=== PATIENT | female | born 1985 | race Caucasian/White ===

== ENCOUNTER 2018-02-21 12:19 | Inpatient (IN) ==
[2018-02-21] MEDS ORDERED: Vancomycin Inj 1 GM/200 ML PIGGYBACK IV.SIG ONE (14:25)
[2018-02-21] MEDS ORDERED: Morphine Inj 4 MG/ML Vial IV.PUSH ONE (14:25)
--- NOTE | 2018-02-21 14:29 | ED ---
HPI General Chief complaint: Skin/Abscess/Foreign Body Stated complaint: Right hand swelling Time Seen by Provider: 02/21/18 14:16 History of Present Illness HPI narrative: 32-year-old female presents to the emergency department for evaluation of right hand abscess for 1 week. Patient states she was seen in our emergency department 2 days ago and had I&D of this abscess done at that time and has been on antibiotics since then however it continues to worsen. States that the area has gotten larger and more painful since then. States that she has decreased range of motion in the second and third MCP joints due to the swelling and pain and also reports she has a tingling sensation to the distal aspects of these fingers. She does complain of chills and body aches and pain. Denies any fever, nausea, vomiting, discharge or drainage. States that she has not used any drugs since she was seen here 2 days ago. States that the injection site was IV heroin. Denies . No other complaints or concerns. Related Data Previous Rx's Medication Instructions Recorded cephalexin [Keflex] 500 mg PO Q6H 7 Days #28 cap 02/19/18 sulfamethoxazole-trimethoprim 1 tab PO BID 7 Days #14 tab 02/19/18 [Bactrim DS] Allergies Allergy/AdvReac Type Severity Reaction Status Date / Time No Known Allergies Allergy Verified 02/21/18 13:41 Review of Systems ROS: all other systems reviewed are negative PMFSH Family History Family History Other No pertinent family history Social History Social History Substance History: Active Abuse Second Hand Smoke Exposure: Yes Smoking Status: Current every day smoker Tobacco Type: Cigarettes How Often Do You Have a Drink Containing Alcohol: Never Recent Travel in [facility] within the Last 8 Weeks: No Recent Out of Country Travel within the Last 8 Weeks: No Substance Abuse Detail Methamphetamine: Substance Use Status: Active Route Used Substance Abuse: Intravenously Substance Frequency: WEEKLY Last Used: 02/18/18 Immunization History Tetanus Immunization: Unsure Hx Influenza Vaccine This Season: No Exam Narrative Exam Narrative: GENERAL: Well-nourished and well-developed female patient in no acute distress who is nontoxic appearing. SKIN: Warm and dry. HEAD: Normocephalic and atraumatic. EYES: No injection, drainage, or hyphema noted. PERRLA. EOMI. ENT: No nasal drainage noted. Oropharynx is clear. NECK: Supple and the trachea is midline. CARDIOVASCULAR: Regular rate and rhythm. RESPIRATORY: Breath sounds are equal bilaterally with no accessory muscle use, wheezing, rhonchi, or crackles. GASTROINTESTINAL: Abdomen is soft, non-tender, and nondistended. MUSCULOSKELETAL: Dorsal aspect of right hand overlying second and third MCPs with erythema, swelling, induration and tenderness to palpation. Decreased range of motion in the second and third MCP joints, full range of motion in all other joints. No obvious deformities, cyanosis, or ecchymosis is present throughout the upper and lower extremities. Patient has full range of motion without any signs of neurovascular compromise. Distal pulses are 2+ throughout. NEUROLOGICAL: Awake, alert, and oriented. Normal speech and gait. Cranial nerves are grossly intact. Course Initial Documented Vital Signs Temperature 98.3 F 02/21/18 12:36 Pulse Rate 62 02/21/18 12:36 Respiratory Rate 16 02/21/18 12:36 Blood Pressure 117/54 L 02/21/18 12:36 Pulse Oximetry 99 02/21/18 12:36 Last Documented Vital Signs Temperature 98.3 F 02/21/18 12:36 Pulse Rate 62 02/21/18 12:36 Respiratory Rate 16 02/21/18 12:36 Blood Pressure 117/54 L 02/21/18 12:36 Pulse Oximetry 99 02/21/18 12:36 Medical Decision Making [facility] Narrative Medical decision making narrative: 32-year-old female with a history of IVDU presents to the emergency department for evaluation of right hand abscess. Patient is afebrile, vital signs are stable. Patient seen in our emergency department 2 days ago and had I&D and has been on antibiotics however the infection has worsened. IV access is obtained, labs of been drawn and sent. Patient placed on cardiac telemetry and pulse oximetry monitoring. I reviewed the previous documentation which shows the patient was given clindamycin while in the ED and then discharged on Keflex and Bactrim. Therefore will give her broad-spectrum coverage with 1 g vancomycin. Patient will be need to be admitted for failure of outpatient antibiotic therapy and to have hand surgery consult. CBC shows no acute abnormality. ESR is 28. CMP shows no acute abnormality. Lactic acid is 0.9. CRP is 1.78. Hospitalist accepted admission. Medical Screen Exam Complete: Yes Emergency Medical Condition: Yes Differential Diagnosis Differential Diagnosis: Abscess versus cellulitis versus sepsis Lab Data Result diagrams: 02/21/18 15:17 02/21/18 15:17 POC Results POC Urine Results Negative Lab Results 02/21/18 02/21/18 02/21/18 Range/Units 15:17 15:17 15:17 WBC 6.6 (4.0-11.0) th/mm3 RBC 4.53 (4.00-5.30) mil/mm3 Hgb 13.6 (11.6-15.3) gm/dL Hct 40.9 (35.0-46.0) % MCV 90.3 (80.0-100.0) fL MCH 30.1 (27.0-34.0) pg MCHC 33.3 (32.0-36.0) % RDW 14.1 (11.6-17.2) % Plt Count 330 (150-450) th/mm3 MPV 7.5 (7.0-11.0) fL Neut % (Auto) 50.7 (16.0-70.0) % Lymph % (Auto) 41.0 (9.0-44.0) % [place] % (Auto) 6.2 (0.0-8.0) % Eos % (Auto) 1.2 (0.0-4.0) % Baso % (Auto) 0.9 (0.0-2.0) % Neut # (Auto) 3.4 (1.8-7.7) th/mm3 Lymph # (Auto) 2.7 (1.0-4.8) th/mm3 [place] # (Auto) 0.4 (0.0-0.9) th/mm3 Eos # (Auto) 0.1 (0.0-0.4) th/mm3 Baso # (Auto) 0.1 (0.0-0.2) th/mm3 WBC Differential . Differential Comment Auto diff final ESR (0-20) mm/hr Sodium 142 (136-145) meq/L Potassium 4.0 (3.5-5.1) meq/L Chloride 106 (98-107) meq/L Carbon Dioxide 26.5 (21.0-32.0) meq/L Anion Gap 10 (5-15) meq/L BUN 9 (7-18) mg/dL Creatinine 0.83 (0.50-1.00) mg/dL Estimated GFR 81 L (>89) mL/min Random Glucose 98 (74-106) mg/dL Lactic Acid 0.9 (0.4-2.0) mmol/L Calcium 8.7 (8.5-10.1) mg/dL Total Bilirubin 0.2 (0.2-1.0) mg/dL AST 16 (15-37) U/L ALT 20 (10-53) U/L Alkaline Phosphatase 92 (45-117) U/L C-Reactive Protein (0.00-0.30) mg/dL Total Protein 8.0 (6.4-8.2) g/dL Albumin 3.5 (3.4-5.0) g/dL 02/21/18 02/21/18 Range/Units 15:17 15:17 WBC (4.0-11.0) th/mm3 RBC (4.00-5.30) mil/mm3 Hgb (11.6-15.3) gm/dL Hct (35.0-46.0) % MCV (80.0-100.0) fL MCH (27.0-34.0) pg MCHC (32.0-36.0) % RDW (11.6-17.2) % Plt Count (150-450) th/mm3 MPV (7.0-11.0) fL Neut % (Auto) (16.0-70.0) % Lymph % (Auto) (9.0-44.0) % [place] % (Auto) (0.0-8.0) % Eos % (Auto) (0.0-4.0) % Baso % (Auto) (0.0-2.0) % Neut # (Auto) (1.8-7.7) th/mm3 Lymph # (Auto) (1.0-4.8) th/mm3 [place] # (Auto) (0.0-0.9) th/mm3 Eos # (Auto) (0.0-0.4) th/mm3 Baso # (Auto) (0.0-0.2) th/mm3 WBC Differential Differential Comment ESR 28 H (0-20) mm/hr Sodium (136-145) meq/L Potassium (3.5-5.1) meq/L Chloride (98-107) meq/L Carbon Dioxide (21.0-32.0) meq/L Anion Gap (5-15) meq/L BUN (7-18) mg/dL Creatinine (0.50-1.00) mg/dL Estimated GFR (>89) mL/min Random Glucose (74-106) mg/dL Lactic Acid (0.4-2.0) mmol/L Calcium (8.5-10.1) mg/dL Total Bilirubin (0.2-1.0) mg/dL AST (15-37) U/L ALT (10-53) U/L Alkaline Phosphatase (45-117) U/L C-Reactive Protein 1.78 H (0.00-0.30) mg/dL Total Protein (6.4-8.2) g/dL Albumin (3.4-5.0) g/dL Discharge Plan Discharge Disposition Patient Disposition: 32 Still Patient Discharge Details Diagnosis: Cellulitis of hand, left Physicians Team ED Provider: Adriana Guy ED Midlevel Provider: Ana Maria Tovar Primary Care Provider: Primary Care Yael Arreguin Attending Provider: Cassie Ramirez Other Providers: Arcenio Bowens Status ED Status: Admitted Observation Patient
[2018-02-21] MEDS ORDERED: Vancomycin Inj 1,000 MG in Sodium Chlor 0.9% Inj 250 ML IV.SIG ONE (14:45)
[2018-02-21 15:44] LABS: Baso # (Auto) 0.1 th/mm3 (0.0-0.2); Baso % (Auto) 0.9 % (0.0-2.0); Eos # (Auto) 0.1 th/mm3 (0.0-0.4); Eos % (Auto) 1.2 % (0.0-4.0); Hematocrit 40.9 % (35.0-46.0); Hemoglobin 13.6 gm/dL (11.6-15.3); Lymph # (Auto) 2.7 th/mm3 (1.0-4.8); Mean Corpuscular HGB Conc 33.3 % (32.0-36.0); Mean Corpuscular Hemoglobin 30.1 pg (27.0-34.0); Mean Corpuscular Volume 90.3 fL (80.0-100.0); Mean Platelet Volume 7.5 fL (7.0-11.0); Mono # (Auto) 0.4 th/mm3 (0.0-0.9); Mono % (Auto) 6.2 % (0.0-8.0); Neut # (Auto) 3.4 th/mm3 (1.8-7.7); Neut % (Auto) 50.7 % (16.0-70.0); Platelet Count 330 th/mm3 (150-450); Red Blood Count 4.53 mil/mm3 (4.00-5.30); Red Cell Distribution Width 14.1 % (11.6-17.2); White Blood Count 6.6 th/mm3 (4.0-11.0)
[2018-02-21 16:26] LABS: Alanine Aminotransferase 20 U/L (10-53); Albumin 3.5 g/dL (3.4-5.0); Anion Gap 10 meq/L (5-15); Aspartate Aminotransferase 16 U/L (15-37); Blood Urea Nitrogen 9 mg/dL (7-18); Calcium 8.7 mg/dL (8.5-10.1); Carbon Dioxide 26.5 meq/L (21.0-32.0); Chloride 106 meq/L (98-107); Glomerular Filtration Rate 81 mL/min (>89); Glucose,Random 98 mg/dL (74-106); Sodium 142 meq/L (136-145)
[2018-02-21 16:28] LABS: Alkaline Phosphatase 92 U/L (45-117)
[2018-02-21] MEDS ORDERED: Vancomycin Consult Pharmacy OTHER PRN (17:04)
--- NOTE | 2018-02-21 17:12 | P.HPIM ---
History of Present Illness Primary Care Physician: No Primary Care Physician Chief Complaint: right hand infection History of Present Illness: patient is a 32 y/o female , IV-drug abuser, with history of hepatitis C, who presented to ER with right hand infection. she says that she tried to do the injection to her right hand about six days ago. two days after she started to have pain, swelling and redness over the right hand.she came to ER, received a dose of Clindamycin, had bedside drainage of the abscess and was discharged home with Bactrim and Keflex. she says that she could only fill the Bactrim prescription. however the infection of the right hand got worse. she says that now she's not able to bend the right fingers.she denies any fever or chills. Review of Systems All other systems reviewed negative except as stated in HPI PMFSH - History History Provided By: Patient - Medical History Medical History: Medical History (Last Reviewed 02/21/18 @ 17:08 by Cassie Ramirez MD) Hepatitis C - Surgical History Surgical History: Surgical History (Last Reviewed 02/21/18 @ 17:08 by Cassie Ramirez MD) No history of previous surgery - Family History Family History: Family History (Last Updated 02/21/18 @ 17:09 by Cassie Ramirez MD) Other No pertinent family history - Tobacco History Second Hand Smoke Exposure: Yes Tobacco Use In Past 30 Days: Yes Smoking Status: Current every day smoker Tobacco Type: Cigarettes - Alcohol History How Often Do You Have a Drink Containing Alcohol: Never - Substance Use History Substance History: Active Abuse - Substance Use Type Methamphetamine Status: Active Route Used: Intravenously Frequency: WEEKLY Last Used: 02/18/18 - Travel History Recent Travel in the [facility] Within the Last 8 Weeks: No Recent Travel Out of the Country Within the Last 8 Weeks: No - Immunization History Tetanus Immunization: Unsure Hx Influenza Vaccine This Season: No Medications and Allergies Active Medications: Active Medications Acetaminophen (Tylenol) 650 mg PO Q4H PRN PRN Reason: fever/pain 1-10 Piperacillin/Tazobactam/Dextrose (Zosyn 3.375 Gm Premix) 50 mls @ 100 mls/hr IV.SIG Q8H RANDI Ketorolac Tromethamine (Toradol Inj) 15 mg IV.PUSH Q6H PRN PRN Reason: breakthrough pain Pharmacy Profile Note (Vancomycin Consult Pharmacy) 1 each OTHER UNSCH PRN PRN Reason: Pharmacy to dose Allergies Allergy/AdvReac Type Severity Reaction Status Date / Time No Known Allergies Allergy Verified 02/21/18 13:41 Exam Vital signs: Vital Signs 02/21/18 12:36 Temperature 98.3 F Pulse Rate 62 Respiratory Rate 16 Blood Pressure 117/54 L Pulse Oximetry 99 Intake & Output 02/20/18 02/21/18 02/21/18 18:59 06:59 18:59 Intake Total 250 / 250 Balance 250 / 250 Weight 57.153 kg Intake: IV 250 / 250 Vancomycin Inj 1,000 MG In NS 250 / 250 Inj 250 ML @ 250 mls/hr IV.SIG ONCE ONE Rx#:[id number] - Constitutional no acute distress - Routine HEENT Exam Eye: Present: PERRL - Routine Neck Exam Present: supple - Routine Respiratory Exam Present: CTA bilaterally - Routine Cardiovascular Exam Present: RRR - Routine Abdominal Exam Present: soft - Routine Extremities Exam Comments: swelling of the right hand with decrease in ROM. - Routine Skin Exam Present: erythema (over the right hand.) - Routine Neurological Exam Present: alert, oriented X3 Results - Labs CBC & Chem 7: 02/21/18 15:17 02/21/18 15:17 Labs: Short CBC 02/21/18 Range/Units 15:17 WBC 6.6 (4.0-11.0) th/mm3 Hgb 13.6 (11.6-15.3) gm/dL Hct 40.9 (35.0-46.0) % Plt Count 330 (150-450) th/mm3 BMP 02/21/18 15:17 Sodium 142 Potassium 4.0 Chloride 106 Carbon Dioxide 26.5 BUN 9 Creatinine 0.83 Calcium 8.7 Liver Function 02/21/18 Range/Units 15:17 Total Bilirubin 0.2 (0.2-1.0) mg/dL AST 16 (15-37) U/L ALT 20 (10-53) U/L Alkaline Phosphatase 92 (45-117) U/L Albumin 3.5 (3.4-5.0) g/dL Caprini VTE Risk Assessment Caprini VTE Risk Assessment: No/Low Risk (score <= 1) Caprini Risk Assessment Model: Point Value = 1 Point Value = 2 Point Value = 3 Point Value = 5 Age 41-60 Minor surgery BMI > 25 kg/m2 Swollen legs Varicose veins or History of unexplained or recurrent spontaneous Oral contraceptives or hormone replacement Sepsis (< 1 month) Serious lung disease, including pneumonia (< 1 month) Abnormal pulmonary function Acute myocardial infarction Congestive heart failure (< 1 month) History of inflammatory bowel disease Medical patient at bed rest Age 61-74 Arthroscopic surgery Major open surgery (> 45 min) Laparoscopic surgery (> 45 min) Malignancy Confined to bed (> 72 hours) Immobilizing plaster cast Central venous access Age >= 75 History of VTE Family history of VTE Factor V Leiden Prothrombin [id number] Lupus anticoagulant Anticardiolipin antibodies Elevated serum homocysteine Heparin-induced thrombocytopenia Other congenital or acquired thrombophilia Stroke (< 1 month) Elective arthroplasty Hip, pelvis, or leg fracture Acute spinal cord injury (< 1 month) Prophylaxis Regimen: Total Risk Factor Score Risk Level Prophylaxis Regimen 0-1 Low Early ambulation 2 Moderate Order ONE of the following: *Sequential Compression Device (SCD) *Heparin 5000 units SQ BID 3-4 Higher Order ONE of the following medications: *Heparin 5000 units SQ TID *Enoxaparin/Lovenox 40 mg SQ daily (WT < 150 kg, CrCl > 30 mL/min) *Enoxaparin/Lovenox 30 mg SQ daily (WT < 150 kg, CrCl > 10-29 mL/min) *Enoxaparin/Lovenox 30 mg SQ BID (WT < 150 kg, CrCl > 30 mL/min) AND/OR *Sequential Compression Device (SCD) 5 or more Highest Order ONE of the following medications: *Heparin 5000 units SQ TID (Preferred with Epidurals) *Enoxaparin/Lovenox 40 mg SQ daily (WT < 150 kg, CrCl > 30 mL/min) *Enoxaparin/Lovenox 30 mg SQ daily (WT < 150 kg, CrCl > 10-29 mL/min) *Enoxaparin/Lovenox 30 mg SQ BID (WT < 150 kg, CrCl > 30 mL/min) AND *Sequential Compression Device (SCD) Assessment and Plan - Plan A/P - abscess of the right hand with history of IV drug-injection- with no improvement with oral antibiotic patient had bedside I/D two days ago. will start on broad-spectrum IV antibiotics and will consult hand surgery. will follow the blood cultures. will keep the right hand elevated and continue with pain control. -hepatitis C- f/u as outpatient. Discussed Condition With: ER and the patient. Discharge Planning: home- pending clinical course.
[2018-02-21] MEDS: Piperacil/Tazo 3.375 GM Premix 50 ML IV.SIG SCH (17:55)
[2018-02-21] MEDS: Acetaminophen 325 MG Tablet PO PRN (21:23)
[2018-02-22] MEDS: Piperacil/Tazo 3.375 GM Premix 50 ML IV.SIG SCH ×2 (01:53→10:36)
[2018-02-22] MEDS: Vancomycin Inj 850 MG in Sodium Chlor 0.9% Inj 250 ML IV.SIG SCH ×2 (04:13→16:43)
[2018-02-22] MEDS: Ketorolac Inj 30 MG/ML (IVP) Vial IV.PUSH PRN ×2 (11:19→18:10)
--- NOTE | 2018-02-22 12:23 | P.CONID ---
History of Present Illness Service: ID Consult date: 02/22/18 Requesting Physician: Rosa Riley Reason for Consult: Right hand cellulitis/abscess, IVDU Primary Care Provider: No Primary Care Physician Chief Complaint: right hand infection History of Present Illness: 32 yo F with active IVDU developped R hand swelling, pain redness few days ago after infecting IV drugs to the top of her hand Denies fevers, chills, no other symptoms No abx prior to admission Started on vanco and zosyn Improved since admitted Blood clx neg @ 1 day remains afebrile WBC is normal Review of Systems All other systems reviewed negative except as stated in HPI PMFSH - History History Provided By: Family Member - Medical History Medical History: Medical History (Last Reviewed 02/22/18 @ 12:17 by Diana Sparrow MD) Hepatitis C - Surgical History Surgical History: Surgical History (Last Reviewed 02/22/18 @ 12:17 by Diana Sparrow MD) No history of previous surgery - Family History Family History: Family History (Last Reviewed 02/22/18 @ 12:17 by Diana Sparrow MD) Other No pertinent family history - Social History I have reviewed the patient's Social History: Yes - Tobacco History Second Hand Smoke Exposure: Yes Tobacco Use In Past 30 Days: Yes Smoking Status: Current every day smoker Tobacco Type: Cigarettes - Alcohol History How Often Do You Have a Drink Containing Alcohol: Monthly or less - Substance Use History Substance History: Active Abuse - Substance Use Type Methamphetamine Status: Active Route Used: Intravenously Frequency: WEEKLY Last Used: 02/18/18 Reason for Use: Stay Awake - Travel History Recent Travel in the [place] Within the Last 8 Weeks: No Recent Travel Out of the Country Within the Last 8 Weeks: No - Immunization History Tetanus Immunization: Unsure Hx Influenza Vaccine This Season: No Medications and Allergies Active Medications: Active Medications Acetaminophen (Tylenol) 650 mg PO Q4H PRN PRN Reason: fever/pain 1-10 Last Admin: 02/21/18 21:23 Dose: 650 mg Piperacillin/Tazobactam/Dextrose (Zosyn 3.375 Gm Premix) 50 mls @ 100 mls/hr IV.SIG Q8H RANDI Last Admin: 02/22/18 10:36 Dose: 100 mls/hr Vancomycin HCl 850 mg/ Sodium (Chloride) 258.5 mls @ 250 mls/hr IV.SIG Q12H RANDI Last Infusion: 02/22/18 05:16 Dose: Infused Ketorolac Tromethamine (Toradol Inj) 15 mg IV.PUSH Q6H PRN PRN Reason: breakthrough pain Stop: 02/26/18 17:02 Last Admin: 02/22/18 11:19 Dose: 15 mg Miscellaneous Information ([facility] Ordered Lab Info) 1 each OTHER ONCE ONE Stop: 02/23/18 04:46 Pharmacy Profile Note (Vancomycin Consult Pharmacy) 1 each OTHER UNSCH PRN PRN Reason: Pharmacy to dose Allergies Allergy/AdvReac Type Severity Reaction Status Date / Time No Known Allergies Allergy Verified 02/21/18 13:41 Exam Vital signs: Vital Signs 02/21/18 12:36 02/21/18 17:57 02/21/18 18:18 Temperature 98.3 F 98.2 F Pulse Rate 62 60 Respiratory Rate 16 18 20 Blood Pressure 117/54 L 112/76 105/59 L Pulse Oximetry 99 96 02/21/18 20:00 02/21/18 23:47 02/22/18 03:59 Temperature 97.5 F L 98.5 F 97.8 F Pulse Rate 62 65 52 L Respiratory Rate 17 16 16 Blood Pressure 97/50 L 96/52 L 98/52 L Pulse Oximetry 96 95 96 02/22/18 08:00 02/22/18 12:00 Temperature 97.9 F 97.8 F Pulse Rate 58 L 47 L Respiratory Rate 16 16 Blood Pressure 107/52 L 105/53 L Pulse Oximetry 92 L 96 Intake & Output 02/21/18 02/22/18 02/22/18 18:59 06:59 18:59 Intake Total 300 / 300 308.5 / 308.5 Balance 300 / 300 308.5 / 308.5 Weight 57.153 kg 58.3 kg Intake: IV 300 / 300 308.5 / 308.5 Zosyn 3.375 GM Premix 50 ML @ 50 / 50 50 / 50 100 mls/hr IV.SIG Q8H RANDI Rx#: [id number] Vancomycin Inj 1,000 MG In NS 250 / 250 Inj 250 ML @ 250 mls/hr IV.SIG ONCE ONE Rx#:[id number] Vancomycin Inj 850 MG In NS Inj 258.5 / 258.5 250 ML @ 250 mls/hr IV.SIG Q12H [facility] Rx#:[id number] Other: Date of Last Bowel Movement 02/21/18 02/21/18 - Constitutional no acute distress, average body habitus - Routine HEENT Exam Head: Present: normocephalic, atraumatic Eye: Present: EOMI, PERRL ENT: Present: mucous membranes moist, oropharynx clear - Routine Neck Exam Present: supple. Absent: JVD - Routine Respiratory Exam Present: CTA bilaterally. Absent: accessory muscle use, rales, respiratory distress, rhonchi - Routine Cardiovascular Exam Present: RRR, S1, S2. Absent: murmur, gallop, rubs - Routine Abdominal Exam Present: soft, normoactive bowel sounds. Absent: tenderness, distended, organomegaly, mass - Routine Extremities Exam Absent: cyanosis, clubbing, edema Comments: STATUS LOCALIS: R hand with mild to moderate edema of the dorsum and mild erythema, fine wrinkling cw improving edema noted No clear fluctuance Small opening from previous injection site with dry crust, no purulence expressed NO ascending lymphangoitits no ipsilateral axilla lymphadenopathy - Routine Skin Exam Present: dry, warm. Absent: rash - Routine Neurological Exam Present: alert, oriented X3, CN II-XII intact, moving all extremities, vision grossly intact, hearing grossly intact, normal speech - Routine Psychiatric Exam Present: normal affect, cooperative Results - Labs CBC & Chem 7: 02/21/18 15:17 02/21/18 15:17 Labs: Laboratory Results - last 24 hr 02/21/18 02/21/18 02/21/18 15:17 15:17 15:17 WBC 6.6 RBC 4.53 Hgb 13.6 Hct 40.9 MCV 90.3 MCH 30.1 MCHC 33.3 RDW 14.1 Plt Count 330 MPV 7.5 Neut % (Auto) 50.7 Lymph % (Auto) 41.0 [place] % (Auto) 6.2 Eos % (Auto) 1.2 Baso % (Auto) 0.9 Neut # (Auto) 3.4 Lymph # (Auto) 2.7 [place] # (Auto) 0.4 Eos # (Auto) 0.1 Baso # (Auto) 0.1 WBC Differential . Differential Comment Auto diff final ESR Sodium 142 Potassium 4.0 Chloride 106 Carbon Dioxide 26.5 Anion Gap 10 BUN 9 Creatinine 0.83 Estimated GFR 81 L Random Glucose 98 Lactic Acid 0.9 Calcium 8.7 Total Bilirubin 0.2 AST 16 ALT 20 Alkaline Phosphatase 92 C-Reactive Protein Total Protein 8.0 Albumin 3.5 02/21/18 02/21/18 15:17 15:17 WBC RBC Hgb Hct MCV MCH MCHC RDW Plt Count MPV Neut % (Auto) Lymph % (Auto) [place] % (Auto) Eos % (Auto) Baso % (Auto) Neut # (Auto) Lymph # (Auto) [place] # (Auto) Eos # (Auto) Baso # (Auto) WBC Differential Differential Comment ESR 28 H Sodium Potassium Chloride Carbon Dioxide Anion Gap BUN Creatinine Estimated GFR Random Glucose Lactic Acid Calcium Total Bilirubin AST ALT Alkaline Phosphatase C-Reactive Protein 1.78 H Total Protein Albumin Assessment and Plan - Plan IVDU R hand cellulitis @ injection site; phegmone, no clear abscess findings monitor clinically Drain if develops fluctuance /worse Imagining if worse cont vancomycin dc zosyn
--- NOTE | 2018-02-22 15:11 | P.PN ---
Subjective Interval history: Follow-up on patient with cellulitis right hand. Patient seen and examined. Patient continues to have significant swelling and pain in the right hand and is unable to take a fist. She does feel that the redness has improved some. She denies any fever or chills. She denies any chest pain or shortness of breath. She is threatening to leave AGAINST MEDICAL ADVICE if she does not get foot soon. Physical Exam Vital signs: Vital Signs 02/21/18 17:57 02/21/18 18:18 02/21/18 20:00 Temperature 98.2 F 97.5 F L Pulse Rate 60 62 Respiratory Rate 18 20 17 Blood Pressure 112/76 105/59 L 97/50 L Pulse Oximetry 96 96 02/21/18 23:47 02/22/18 03:59 02/22/18 08:00 Temperature 98.5 F 97.8 F 97.9 F Pulse Rate 65 52 L 58 L Respiratory Rate 16 16 16 Blood Pressure 96/52 L 98/52 L 107/52 L Pulse Oximetry 95 96 92 L 02/22/18 12:00 Temperature 97.8 F Pulse Rate 47 L Respiratory Rate 16 Blood Pressure 105/53 L Pulse Oximetry 96 Intake & Output 02/21/18 02/22/18 02/22/18 18:59 06:59 18:59 Intake Total 300 / 300 308.5 / 308.5 Balance 300 / 300 308.5 / 308.5 Weight 57.153 kg 58.3 kg Intake: IV 300 / 300 308.5 / 308.5 Zosyn 3.375 GM Premix 50 ML @ 50 / 50 50 / 50 100 mls/hr IV.SIG Q8H [facility] Rx#: [id number] Vancomycin Inj 1,000 MG In NS 250 / 250 Inj 250 ML @ 250 mls/hr IV.SIG ONCE ONE Rx#:[id number] Vancomycin Inj 850 MG In NS Inj 258.5 / 258.5 250 ML @ 250 mls/hr IV.SIG Q12H [facility] Rx#:[id number] Other: Date of Last Bowel Movement 02/21/18 02/21/18 Narrative: GENERAL: Well-developed well-nourished young female in no acute distress. Awake and alert. SKIN: Warm and dry. Right hand edematous over the dorsal aspect with mild erythema, decreased range of motion. No active drainage. HEENT: Atraumatic. Normocephalic. Pupils equal and round. No scleral icterus. No injection or drainage. No nasal bleeding or discharge. Mucous membranes pink and moist. NECK: Trachea midline. CARDIOVASCULAR: Regular rate and rhythm. RESPIRATORY: No accessory muscle use. Clear to auscultation. Breath sounds equal bilaterally. GASTROINTESTINAL: Abdomen soft, non-tender, nondistended. +BS. MUSCULOSKELETAL: Extremities without clubbing, cyanosis, or edema. No obvious deformities. NEUROLOGICAL: Awake and alert. No obvious cranial nerve deficits. Motor grossly within normal limits except for the right hand. Able to move all extremities spontaneously. Normal speech. PSYCHIATRIC: Calm and cooperative. Results - Labs CBC & Chem 7: 02/21/18 15:17 02/21/18 15:17 Laboratory Results - last 24 hr 02/21/18 02/21/18 02/21/18 15:17 15:17 15:17 WBC 6.6 RBC 4.53 Hgb 13.6 Hct 40.9 MCV 90.3 MCH 30.1 MCHC 33.3 RDW 14.1 Plt Count 330 MPV 7.5 Neut % (Auto) 50.7 Lymph % (Auto) 41.0 [place] % (Auto) 6.2 Eos % (Auto) 1.2 Baso % (Auto) 0.9 Neut # (Auto) 3.4 Lymph # (Auto) 2.7 [place] # (Auto) 0.4 Eos # (Auto) 0.1 Baso # (Auto) 0.1 WBC Differential . Differential Comment Auto diff final ESR Sodium 142 Potassium 4.0 Chloride 106 Carbon Dioxide 26.5 Anion Gap 10 BUN 9 Creatinine 0.83 Estimated GFR 81 L Random Glucose 98 Lactic Acid 0.9 Calcium 8.7 Total Bilirubin 0.2 AST 16 ALT 20 Alkaline Phosphatase 92 C-Reactive Protein Total Protein 8.0 Albumin 3.5 02/21/18 02/21/18 15:17 15:17 WBC RBC Hgb Hct MCV MCH MCHC RDW Plt Count MPV Neut % (Auto) Lymph % (Auto) [place] % (Auto) Eos % (Auto) Baso % (Auto) Neut # (Auto) Lymph # (Auto) [place] # (Auto) Eos # (Auto) Baso # (Auto) WBC Differential Differential Comment ESR 28 H Sodium Potassium Chloride Carbon Dioxide Anion Gap BUN Creatinine Estimated GFR Random Glucose Lactic Acid Calcium Total Bilirubin AST ALT Alkaline Phosphatase C-Reactive Protein 1.78 H Total Protein Albumin Microbiology 02/21/18 15:17 Blood - Peripheral Aerobic Blood Culture - Preliminary No growth in 1 day 02/21/18 15:17 Blood - Peripheral Anaerobic Blood Culture - Preliminary No growth in 1 day 02/21/18 15:17 Blood - Peripheral Aerobic Blood Culture - Preliminary No growth in 1 day 02/21/18 15:17 Blood - Peripheral Anaerobic Blood Culture - Preliminary No growth in 1 day Assessment and Plan - Plan 32-year-old IV drug user with hx of hepatitis C admitted with abscess right hand following IV injection Right hand cellulitis/abscess, failed outpatient antibiotics Patient seen in the ED 02/19, underwent I&D, discharged on Bactrim and Keflex CT right hand 02/19 shows subcutaneous edema and rim-enhancing fluid collection dorsal to the second metacarpal suspicious for abscess 02/19 wound cx with heavy growth normal skin corey -Continue on IV vancomycin and Zosyn -Blood cultures with no growth 1 day, continue to follow until finalized -Consult hand surgery, appreciate assistance -Consult infectious disease, appreciate assistance -Keep patient n.p.o. for possible surgical intervention -pain management with Toradol -monitor for improvement IV drug use -Patient advised on cessation of illicit drug Hep C -standard precautions -Patient advised to follow-up with GI as outpatient DVT prophylaxis -SCD/BAO hose Discussed Condition With: patient, nursing staff, Dr. Agarwal Discharge Planning: Not ready for discharge
--- NOTE | 2018-02-22 16:32 | P.CON ---
History of Present Illness Service: Hand surgery Consult date: 02/22/18 Primary Care Provider: Yael Primary Care Physician Chief Complaint: right hand infection History of Present Illness: History obtained from chart and nursing as patient potentially an unreliable historian 32 y/o female , IV-drug abuser, with history of hepatitis C, who presented to ER with right hand infection. she says that she tried to do the injection to her right hand about six days ago. two days after she started to have pain, swelling and redness over the right hand.she came to ER, received a dose of Clindamycin, had bedside drainage of the abscess and was discharged home with Bactrim and Keflex. she says that she could only fill the Bactrim prescription. however the infection of the right hand got worse. she says that now she's not able to bend the right fingers.she denies any fever or chills. Since admission, last night, and placement on IV antibiotics, patient reports her pain and swelling are significantly improved Review of Systems All other systems reviewed negative except as stated in HPI PMFSH - History History Provided By: Patient - Medical History Medical History: Medical History (Last Reviewed 02/21/18 @ 17:08 by Cassie Ramirez MD) Hepatitis C - Surgical History Surgical History: Surgical History (Last Reviewed 02/21/18 @ 17:08 by Cassie Ramirez MD) No history of previous surgery - Family History Family History: Family History (Last Updated 02/21/18 @ 17:09 by Cassie Ramirez MD) Other No pertinent family history - Tobacco History Second Hand Smoke Exposure: Yes Tobacco Use In Past 30 Days: Yes Smoking Status: Current every day smoker Tobacco Type: Cigarettes - Alcohol History How Often Do You Have a Drink Containing Alcohol: Never - Substance Use History Substance History: Active Abuse - Substance Use Type Methamphetamine Status: Active Route Used: Intravenously Frequency: WEEKLY Last Used: 02/18/18 - Travel History Recent Travel in the [place] Within the Last 8 Weeks: No Recent Travel Out of the Country Within the Last 8 Weeks: No - Immunization History Tetanus Immunization: Unsure Hx Influenza Vaccine This Season: No Medication list reviewed PMFSH - History History Provided By: Family Member - Medical History Medical History: Medical History (Last Reviewed 02/22/18 @ 12:17 by Diana Sparrow MD) Hepatitis C - Surgical History Surgical History: Surgical History (Last Reviewed 02/22/18 @ 12:17 by Diana Sparrow MD) No history of previous surgery - Family History Family History: Family History (Last Reviewed 02/22/18 @ 12:17 by Diana Sparrow MD) Other No pertinent family history - Tobacco History Second Hand Smoke Exposure: Yes Tobacco Use In Past 30 Days: Yes Smoking Status: Current every day smoker Tobacco Type: Cigarettes - Alcohol History How Often Do You Have a Drink Containing Alcohol: Monthly or less - Substance Use History Substance History: Active Abuse - Substance Use Type Methamphetamine Status: Active Route Used: Intravenously Frequency: WEEKLY Last Used: 02/18/18 Reason for Use: Stay Awake - Travel History Recent Travel in the [place] Within the Last 8 Weeks: No Recent Travel Out of the Country Within the Last 8 Weeks: No - Immunization History Tetanus Immunization: Unsure Hx Influenza Vaccine This Season: No Medications and Allergies Active Medications: Active Medications Acetaminophen (Tylenol) 650 mg PO Q4H PRN PRN Reason: fever/pain 1-10 Last Admin: 02/21/18 21:23 Dose: 650 mg Vancomycin HCl 850 mg/ Sodium (Chloride) 258.5 mls @ 250 mls/hr IV.SIG Q12H [facility] Last Infusion: 02/22/18 05:16 Dose: Infused Ketorolac Tromethamine (Toradol Inj) 15 mg IV.PUSH Q6H PRN PRN Reason: breakthrough pain Stop: 02/26/18 17:02 Last Admin: 02/22/18 11:19 Dose: 15 mg Miscellaneous Information ([facility] Ordered Lab Info) 1 each OTHER ONCE ONE Stop: 02/23/18 04:46 Pharmacy Profile Note (Vancomycin Consult Pharmacy) 1 each OTHER UNSCH PRN PRN Reason: Pharmacy to dose Allergies Allergy/AdvReac Type Severity Reaction Status Date / Time No Known Allergies Allergy Verified 02/21/18 13:41 Physical Exam Vital signs: Vital Signs 02/21/18 17:57 02/21/18 18:18 02/21/18 20:00 Temperature 98.2 F 97.5 F L Pulse Rate 60 62 Respiratory Rate 18 20 17 Blood Pressure 112/76 105/59 L 97/50 L Pulse Oximetry 96 96 02/21/18 23:47 02/22/18 03:59 02/22/18 08:00 Temperature 98.5 F 97.8 F 97.9 F Pulse Rate 65 52 L 58 L Respiratory Rate 16 16 16 Blood Pressure 96/52 L 98/52 L 107/52 L Pulse Oximetry 95 96 92 L 02/22/18 12:00 02/22/18 16:00 Temperature 97.8 F 98.0 F Pulse Rate 47 L 63 Respiratory Rate 16 16 Blood Pressure 105/53 L 96/51 L Pulse Oximetry 96 94 L Intake & Output 02/21/18 02/22/18 02/22/18 18:59 06:59 18:59 Intake Total 300 / 300 308.5 / 308.5 50 / 50 Balance 300 / 300 308.5 / 308.5 50 / 50 Weight 57.153 kg 58.3 kg Intake: IV 300 / 300 308.5 / 308.5 50 / 50 Zosyn 3.375 GM Premix 50 ML @ 50 / 50 50 / 50 50 / 50 100 mls/hr IV.SIG Q8H [facility] Rx#: [id number] Vancomycin Inj 1,000 MG In NS 250 / 250 Inj 250 ML @ 250 mls/hr IV.SIG ONCE ONE Rx#:[id number] Vancomycin Inj 850 MG In NS Inj 258.5 / 258.5 250 ML @ 250 mls/hr IV.SIG Q12H [facility] Rx#:[id number] Other: Date of Last Bowel Movement 02/21/18 02/21/18 Narrative: No apparent anxiety moist mucous membranes PERRLA skin without rash respirations nonlabored moves all 4 extremities to command digits warm well perfused Right dorsal hand with roughly 2-3 cm area of erythema No fluctuance appreciated Full active range of motion Assessment and Plan - Assessment (1) Cellulitis of hand, left Code(s): L03.114 - Cellulitis of left upper limb Status: Acute - Plan 32-year-old female with right dorsal hand cellulitis Do not appreciate fluctuance IV antibiotics for cellulitis per primary Please call with questions
[2018-02-23] MEDS ORDERED: Pharmacy Ordered Lab Info OTHER ONE (04:45)
[2018-02-23] MEDS: Vancomycin Inj 850 MG in Sodium Chlor 0.9% Inj 250 ML IV.SIG SCH (05:45)
[2018-02-23 05:53] LABS: Vancomycin,Trough 4.9 mcg/mL (5.0-10.0)
[2018-02-23] MEDS ORDERED: Vancomycin Inj 500 MG in Sodium Chlor 0.9% Inj 100 ML IV.SIG ONE (10:00)
--- NOTE | 2018-02-23 10:23 | P.PN ---
Subjective Interval history: Follow-up on patient with cellulitis right hand. Patient seen and examined. Patient says her right hand is getting better. She says it is less red and swollen. She is able to move the fingers on the right hand more. She denies any fever or chills. She denies any chest pain or shortness of breath. She denies any N/V or abdominal pain. Physical Exam Vital signs: Vital Signs 02/22/18 12:00 02/22/18 16:00 02/22/18 20:00 Temperature 97.8 F 98.0 F 98.2 F Pulse Rate 47 L 63 58 L Respiratory Rate 16 16 16 Blood Pressure 105/53 L 96/51 L 105/50 L Pulse Oximetry 96 94 L 98 02/23/18 00:00 02/23/18 03:02 02/23/18 05:27 Temperature 98.2 F 98.2 F 98.2 F Pulse Rate 54 L 54 L 69 Respiratory Rate 16 16 16 Blood Pressure 96/46 L 96/46 L 104/57 L Pulse Oximetry 96 96 96 02/23/18 07:24 Temperature 97.7 F Pulse Rate 60 Respiratory Rate 18 Blood Pressure 103/55 L Pulse Oximetry 95 Intake & Output 02/22/18 02/23/18 02/23/18 18:59 06:59 18:59 Intake Total 1008.5 / 1008.5 60 / 60 250 / 250 Balance 1008.5 / 1008.5 60 / 60 250 / 250 Weight 58.06 kg Intake: IV 308.5 / 308.5 250 / 250 Zosyn 3.375 GM Premix 50 ML @ 50 / 50 100 mls/hr IV.SIG Q8H [facility] Rx#: [id number] Vancomycin Inj 850 MG In NS Inj 258.5 / 258.5 250 / 250 250 ML @ 250 mls/hr IV.SIG Q12H [facility] Rx#:[id number] Oral 700 / 700 60 / 60 Other: # Voids 3 2 Date of Last Bowel Movement 02/21/18 Narrative: GENERAL: Well-developed well-nourished young female in no acute distress. Awake and alert. Appears comfortable. SKIN: Warm and dry. Right hand edematous over the dorsal aspect with mild erythema, decreased range of motion, improving with less swelling and redness. Able to move fingers on the right hand more. Not able to make a fist. No active drainage. HEENT: Atraumatic. Normocephalic. Pupils equal and round. No scleral icterus. No injection or drainage. No nasal bleeding or discharge. Mucous membranes pink and moist. NECK: Trachea midline. CARDIOVASCULAR: Regular rate and rhythm. RESPIRATORY: No accessory muscle use. Clear to auscultation. Breath sounds equal bilaterally. GASTROINTESTINAL: Abdomen soft, non-tender, nondistended. +BS. MUSCULOSKELETAL: Extremities without clubbing, cyanosis, or edema. No obvious deformities. NEUROLOGICAL: Awake and alert. No obvious cranial nerve deficits. Motor grossly within normal limits except for the right hand. Able to move all extremities spontaneously. Normal speech. PSYCHIATRIC: Calm and cooperative. Results - Labs CBC & Chem 7: 02/21/18 15:17 02/23/18 04:50 Laboratory Results - last 24 hr 02/23/18 04:50 BUN 14 Creatinine 0.81 Estimated GFR 83 L Vancomycin Trough 4.9 L Microbiology 02/21/18 15:17 Blood - Peripheral Aerobic Blood Culture - Preliminary No growth in 1 day 02/21/18 15:17 Blood - Peripheral Anaerobic Blood Culture - Preliminary No growth in 1 day 02/21/18 15:17 Blood - Peripheral Aerobic Blood Culture - Preliminary No growth in 1 day 02/21/18 15:17 Blood - Peripheral Anaerobic Blood Culture - Preliminary No growth in 1 day Assessment and Plan - Plan 32-year-old IV drug user with hx of hepatitis C admitted with abscess right hand following IV injection Right hand cellulitis/abscess, failed outpatient antibiotics Patient seen in the ED 02/19, underwent I&D, discharged on Bactrim and Keflex CT right hand 02/19 shows subcutaneous edema and rim-enhancing fluid collection dorsal to the second metacarpal suspicious for abscess 02/19 wound cx with heavy growth normal skin corey Patient is afebrile -Evaluated by hand surgery, no indication for surgical intervention at this time -Infectious disease following, appreciate assistance. Zosyn discontinued. Continue on IV vancomycin. Trough low. Pharmacy adjusting dose. -Blood cultures with no growth 2 day, continue to follow until finalized -pain management with Toradol -monitor for improvement IV drug use -Patient advised on cessation of illicit drug Hep C -standard precautions -Patient advised to follow-up with GI as outpatient DVT prophylaxis -SCD/BAO levine Discussed Condition With: patient, nursing staff, Dr. Agarwal Discharge Planning: Not ready for discharge. Still requiring IV antibiotics. Discharge pending clinical improvement and infectious disease clearance.
[2018-02-23] MEDS: Ketorolac Inj 30 MG/ML (IVP) Vial IV.PUSH PRN (10:28)
--- NOTE | 2018-02-23 13:47 | P.PNID ---
Subjective Remarks: states she is better no fever seen by hand surgeon - no surgery rec'd blood clx NGTD Antibiotics: vanco Allergies/Adverse Reactions: Allergies No Known Allergies Allergy (Verified 02/21/18 13:41) Objective Vital Signs 02/22/18 16:00 02/22/18 20:00 02/23/18 00:00 Temperature 98.0 F 98.2 F 98.2 F Pulse Rate 63 58 L 54 L Respiratory Rate 16 16 16 Blood Pressure 96/51 L 105/50 L 96/46 L Pulse Oximetry 94 L 98 96 02/23/18 03:02 02/23/18 05:27 02/23/18 07:24 Temperature 98.2 F 98.2 F 97.7 F Pulse Rate 54 L 69 60 Respiratory Rate 16 16 18 Blood Pressure 96/46 L 104/57 L 103/55 L Pulse Oximetry 96 96 95 02/23/18 11:17 02/23/18 11:30 Temperature 98.2 F Pulse Rate 61 Respiratory Rate 18 18 Blood Pressure 116/53 L Pulse Oximetry 96 Intake & Output 02/22/18 02/23/18 02/23/18 18:59 06:59 18:59 Intake Total 1008.5 / 1008.5 60 / 60 350 / 350 Balance 1008.5 / 1008.5 60 / 60 350 / 350 Weight 58.06 kg Intake: IV 308.5 / 308.5 350 / 350 Zosyn 3.375 GM Premix 50 ML @ 50 / 50 100 mls/hr IV.SIG Q8H [facility] Rx#: [id number] Vancomycin Inj 850 MG In NS Inj 258.5 / 258.5 250 / 250 250 ML @ 250 mls/hr IV.SIG Q12H [facility] Rx#:[id number] Vancomycin Inj 500 MG In NS Inj 100 / 100 100 ML @ 200 mls/hr IV.SIG ONCE ONE Rx#:[id number] Oral 700 / 700 60 / 60 Other: # Voids 3 2 Date of Last Bowel Movement 02/21/18 02/21/18 15:17 Blood - Peripheral Aerobic Blood Culture - Preliminary No growth in 2 days 02/21/18 15:17 Blood - Peripheral Anaerobic Blood Culture - Preliminary No growth in 2 days 02/21/18 15:17 Blood - Peripheral Aerobic Blood Culture - Preliminary No growth in 2 days 09/24/18 15:17 Blood - Peripheral Anaerobic Blood Culture - Preliminary No growth in 2 days Lab - Hematology Results 02/21/18 02/21/18 15:17 15:17 WBC 6.6 RBC 4.53 Hgb 13.6 Hct 40.9 MCV 90.3 MCH 30.1 MCHC 33.3 RDW 14.1 Plt Count 330 MPV 7.5 Neut % (Auto) 50.7 Lymph % (Auto) 41.0 [place] % (Auto) 6.2 Eos % (Auto) 1.2 Baso % (Auto) 0.9 Neut # (Auto) 3.4 Lymph # (Auto) 2.7 [place] # (Auto) 0.4 Eos # (Auto) 0.1 Baso # (Auto) 0.1 WBC Differential . Differential Comment Auto diff final ESR 28 H Lab - Chemistry Results 02/21/18 02/21/18 02/21/18 15:17 15:17 15:17 Sodium 142 Potassium 4.0 Chloride 106 Carbon Dioxide 26.5 Anion Gap 10 BUN 9 Creatinine 0.83 Estimated GFR 81 L Random Glucose 98 Lactic Acid 0.9 Calcium 8.7 Total Bilirubin 0.2 AST 16 ALT 20 Alkaline Phosphatase 92 C-Reactive Protein 1.78 H Total Protein 8.0 Albumin 3.5 02/23/18 04:50 Sodium Potassium Chloride Carbon Dioxide Anion Gap BUN 14 Creatinine 0.81 Estimated GFR 83 L Random Glucose Lactic Acid Calcium Total Bilirubin AST ALT Alkaline Phosphatase C-Reactive Protein Total Protein Albumin Physical Exam: GENERAL: NAD SKIN: Warm and dry. no rash CARDIOVASCULAR: Regular rate and rhythm. no murmurs RESPIRATORY: No accessory muscle use. Clear to auscultation. Breath sounds equal bilaterally. GASTROINTESTINAL: Abdomen soft, non-tender, nondistended. Hepatic and splenic margins not palpable. MUSCULOSKELETAL: Extremities without clubbing, cyanosis, or edema. R hand with some erythema, edema of the diorsum no clear fluctuance + fullness and tenderness of the hand no ascending lymphangitis cellulits NEUROLOGICAL: Awake and alert. non focal Assessment and Plan - Plan IVDU R hand cellulitis @ injection site; phegmone, no clear abscess findings monitor clinically Drain if develops fluctuance /worse Imagining if worse or not improving by tomorrow (MRI w/wo) cont vancomycin bette Thomas
[2018-02-23] MEDS: Acetaminophen 325 MG Tablet PO PRN (16:01)
[2018-02-23] MEDS: Vancomycin Inj 1,000 MG in Sodium Chlor 0.9% Inj 250 ML IV.SIG SCH (17:09)
[2018-02-24] MEDS: Vancomycin Inj 1,000 MG in Sodium Chlor 0.9% Inj 250 ML IV.SIG SCH ×2 (01:58→11:48)
[2018-02-24 07:18] VITALS: O2SAT 98
[2018-02-24 08:55] LABS: Blood Urea Nitrogen 11 mg/dL (7-18); Glomerular Filtration Rate Greater Than 89 mL/min (>89)
[2018-02-24] MEDS ORDERED: Pharmacy Ordered Lab Info OTHER ONE (09:45)
--- NOTE | 2018-02-24 10:57 | US ---
EXAM DATE: 02/24/2018 12:00 AM EDT AGE/SEX: 32 years / Female INDICATIONS: Right hand abscess. CLINICAL DATA: This is the patient's subsequent encounter. Patient reports that signs and symptoms h ave been present for 1 week and indicates a pain score of 0/10. MEDICAL/SURGICAL HISTORY: Hepatitis C. IV drug use. . I&D right hand. COMPARISON: [facility], CT HAND RIGHT W CONTRAST, 02/19/2018. . FINDINGS: Ultrasound posterior hand reveals a complex fluid collection posteriorly centered around the second m etacarpal measuring up to 2 x 1.8 x 0.4 cm. There is surrounding increased vascularity and soft tissu e swelling with edema. CONCLUSION: 1. Complex fluid collection in the posterior right hand as above. Electronically signed by: Justo Hardwick MD 02/24/2018 10:55 AM EDT
--- NOTE | 2018-02-24 12:41 | P.PN ---
Subjective Interval history: Follow-up on patient with cellulitis right hand. Patient seen and examined. Patient says she is doing well. She reports less pain, swelling and redness in the right hand. She says she is able to move her hand better. She denies any fever or chills. She denies any chest pain or dyspnea. She denies any N/V or abdominal pain. Physical Exam Vital signs: Vital Signs 02/23/18 15:53 02/23/18 17:11 02/23/18 20:00 Temperature 98.2 F 97.9 F Pulse Rate 74 66 Respiratory Rate 18 16 15 Blood Pressure 103/57 L 117/56 L Pulse Oximetry 98 98 02/23/18 23:49 02/24/18 03:52 02/24/18 07:15 Temperature 98.1 F 97.9 F 97.9 F Pulse Rate 66 62 61 Respiratory Rate 16 16 16 Blood Pressure 104/52 L 110/56 L 109/54 L Pulse Oximetry 96 96 98 Intake & Output 02/23/18 02/24/18 02/24/18 18:59 06:59 18:59 Intake Total 950 / 950 500 / 500 Balance 950 / 950 500 / 500 Weight 58.1 kg Intake: IV 350 / 350 500 / 500 Vancomycin Inj 1,000 MG In NS 500 / 500 Inj 250 ML @ 250 mls/hr IV.SIG Q8H [facility] Rx#:[id number] Vancomycin Inj 850 MG In NS Inj 250 / 250 250 ML @ 250 mls/hr IV.SIG Q12H [facility] Rx#:[id number] Vancomycin Inj 500 MG In NS Inj 100 / 100 100 ML @ 200 mls/hr IV.SIG ONCE ONE Rx#:[id number] Oral 600 / 600 Other: # Voids 4 Narrative: GENERAL: Well-developed well-nourished young female in no acute distress. Awake and alert. Appears comfortable. SKIN: Warm and dry. Right hand with less erythema and diffuse edema. +edema seems to have coalesced over the 2nd metatarsal area. Improved ROM. HEENT: Atraumatic. Normocephalic. Pupils equal and round. No scleral icterus. No injection or drainage. No nasal bleeding or discharge. Mucous membranes pink and moist. NECK: Trachea midline. CARDIOVASCULAR: Regular rate and rhythm. RESPIRATORY: No accessory muscle use. Clear to auscultation. Breath sounds equal bilaterally. GASTROINTESTINAL: Abdomen soft, non-tender, nondistended. +BS. MUSCULOSKELETAL: Extremities without clubbing, cyanosis, or edema. No obvious deformities. NEUROLOGICAL: Awake and alert. No obvious cranial nerve deficits. Motor grossly within normal limits except for the right hand. Able to move all extremities spontaneously. Normal speech. PSYCHIATRIC: Calm and cooperative. Results - Labs CBC & Chem 7: 02/21/18 15:17 02/24/18 08:15 Laboratory Results - last 24 hr 02/24/18 02/24/18 08:15 08:15 BUN 11 Creatinine 0.60 Estimated GFR Greater than 89 Vancomycin Trough 13.0 H Microbiology 02/21/18 15:17 Blood - Peripheral Aerobic Blood Culture - Preliminary No growth in 3 days 02/21/18 15:17 Blood - Peripheral Anaerobic Blood Culture - Preliminary No growth in 3 days 02/21/18 15:17 Blood - Peripheral Aerobic Blood Culture - Preliminary No growth in 3 days 02/21/18 15:17 Blood - Peripheral Anaerobic Blood Culture - Preliminary No growth in 3 days - Imaging Impressions Soft Tissue Ultrasound 02/24/18 00:00 CONCLUSION: 1. Complex fluid collection in the posterior right hand as above. Assessment and Plan - Plan 32-year-old IV drug user with hx of hepatitis C admitted with abscess right hand following IV injection Right hand cellulitis/abscess, failed outpatient antibiotics Patient seen in the ED 02/19, underwent I&D, discharged on Bactrim and Keflex CT right hand 02/19 shows subcutaneous edema and rim-enhancing fluid collection dorsal to the second metacarpal suspicious for abscess 02/19 wound cx with heavy growth normal skin corey Patient is afebrile Soft tissue US 2 x 1.8 x 0.4 cm complex fluid collection -Evaluated by hand surgery, no indication for surgical intervention at this time. 02/[address] Singh soft tissue US findings, likely phlegmon, not amenable to I&D -Infectious disease following, appreciate assistance. Zosyn discontinued. Continue on IV vancomycin. Pharmacy adjusting dose. Possibly discharge tomorrow on oral abx unless worsens overnight. -Blood cultures with no growth 3 day, continue to follow until finalized -pain management with Toradol -monitor for improvement IV drug use -Patient advised on cessation of illicit drug Hep C -standard precautions -Patient advised to follow-up with GI as outpatient DVT prophylaxis -SCD/BAO frausto Discussed Condition With: patient, nursing staff, Dr. Agarwal, Dr. Singh Discharge Planning: Not ready for discharge. Still requiring IV antibiotics. Discharge pending clinical improvement and infectious disease clearance.
[2018-02-24 12:59] VITALS: BP 109/58; PULSE 68; RESP 20; TEMP 98
--- NOTE | 2018-02-24 14:41 | P.PNID ---
Subjective Remarks: hand improved US results noted no fever seen by hand surgeon - no surgery rec'd blood clx NGTD Antibiotics: vanco Allergies/Adverse Reactions: Allergies No Known Allergies Allergy (Verified 02/21/18 13:41) Objective Vital Signs 02/23/18 15:53 02/23/18 17:11 02/23/18 20:00 Temperature 98.2 F 97.9 F Pulse Rate 74 66 Respiratory Rate 18 16 15 Blood Pressure 103/57 L 117/56 L Pulse Oximetry 98 98 02/23/18 23:49 02/24/18 03:52 02/24/18 07:15 Temperature 98.1 F 97.9 F 97.9 F Pulse Rate 66 62 61 Respiratory Rate 16 16 16 Blood Pressure 104/52 L 110/56 L 109/54 L Pulse Oximetry 96 96 98 02/24/18 12:56 Temperature 98.0 F Pulse Rate 68 Respiratory Rate 20 Blood Pressure 109/58 L Pulse Oximetry 98 Intake & Output 02/23/18 02/24/18 02/24/18 18:59 06:59 18:59 Intake Total 950 / 950 500 / 500 125 / 125 Balance 950 / 950 500 / 500 125 / 125 Weight 58.1 kg Intake: IV 350 / 350 500 / 500 125 / 125 Vancomycin Inj 1,000 MG In NS 500 / 500 125 / 125 Inj 250 ML @ 250 mls/hr IV.SIG Q8H RANDI Rx#:[id number] Vancomycin Inj 850 MG In NS Inj 250 / 250 250 ML @ 250 mls/hr IV.SIG Q12H RANDI Rx#:[id number] Vancomycin Inj 500 MG In NS Inj 100 / 100 100 ML @ 200 mls/hr IV.SIG ONCE ONE Rx#:[id number] Oral 600 / 600 Other: # Voids 4 02/21/18 15:17 Blood - Peripheral Aerobic Blood Culture - Preliminary No growth in 3 days 02/21/18 15:17 Blood - Peripheral Anaerobic Blood Culture - Preliminary No growth in 3 days 02/21/18 15:17 Blood - Peripheral Aerobic Blood Culture - Preliminary No growth in 3 days 02/21/18 15:17 Blood - Peripheral Anaerobic Blood Culture - Preliminary No growth in 3 days Lab - Chemistry Results 02/23/18 02/24/18 04:50 08:15 BUN 14 11 Creatinine 0.81 0.60 Estimated GFR 83 L Greater than 89 Imaging: ITS Impressions Soft Tissue Ultrasound 02/24/18 00:00 CONCLUSION: 1. Complex fluid collection in the posterior right hand as above. Physical Exam: GENERAL: NAD SKIN: Warm and dry. no rash CARDIOVASCULAR: Regular rate and rhythm. no murmurs RESPIRATORY: No accessory muscle use. Clear to auscultation. Breath sounds equal bilaterally. GASTROINTESTINAL: Abdomen soft, non-tender, nondistended. Hepatic and splenic margins not palpable. MUSCULOSKELETAL: Extremities without clubbing, cyanosis, or edema. R hand with no erythema, small edema of the diorsum no clear fluctuance + fullness and tenderness of the hand minimal tenderness no ascending lymphangitis cellulits NEUROLOGICAL: Awake and alert. non focal Assessment and Plan - Plan IVDU R hand cellulitis @ injection site; phegmone, no clear abscess findings dw Dr Thomas: no need to I+D It appears that pt clinically improves She probably cont to get better cont 1 more day of IV vanco and dc tomorrow on oral unless worse
--- NOTE | 2018-02-24 15:23 | P.AMA ---
AMA Note - AMA Note AMA Statement: Patient Amy Titus has decided to leave the hospital against medical advice. This patient has the capacity to refuse care and understands the risks of leaving, including permanent disability and/or , and has had an opportunity to ask questions about his/her condition. The patient has been informed that he/she may return for care at any time, and follow up has been arranged/advised. - AMA Note Discharge Disposition: 07 Against Medical Advice Patient Condition on Discharge: Stable
--- NOTE | 2018-02-24 15:24 | P.DS ---
Date of admission: 02/21/18 17:04 Primary care physician: Yael Primary Care Physician Attending physician on discharge: Laura Agarwal Anticipated date of discharge: 02/24/18 Brief History from admission: patient is a 32 y/o female , IV-drug abuser, with history of hepatitis C, who presented to ER with right hand infection. she says that she tried to do the injection to her right hand about six days ago. two days after she started to have pain, swelling and redness over the right hand.she came to ER, received a dose of Clindamycin, had bedside drainage of the abscess and was discharged home with Bactrim and Keflex. she says that she could only fill the Bactrim prescription. however the infection of the right hand got worse. she says that now she's not able to bend the right fingers.she denies any fever or chills. Patient update on day of discharge: Follow-up on patient with cellulitis right hand. Patient seen and examined. Patient says she is doing well. She reports less pain, swelling and redness in the right hand. She says she is able to move her hand better. She denies any fever or chills. She denies any chest pain or dyspnea. She denies any N/V or abdominal pain. DS: Diagnosis - Discharge Diagnosis (1) IVDU (intravenous drug user) Status: Acute (2) Cellulitis of hand, left Status: Acute DS: Summary Hospital Course: Patient admitted with right hand cellulitis/abscess failed outpatient antibiotics. Patient evaluated in the ED several days prior to admission on and underwent I&D and was discharged on Bactrim and Keflex. CT the right hand obtained at that time revealed subcutaneous edema and rim enhancing fluid collection dorsal to the second metacarpal suspicious for abscess. Wound culture failed to show any growth. Patient represented with complaints of worsening infection of the right hand. Started empirically on Zosyn and vancomycin IV. Patient was seen in consultation by infectious disease. Zosyn was discontinued. Blood cultures were obtained and failed to show any growth. Patient was evaluated by hand surgery who did not feel that surgical intervention was warranted. Patient was advised on cessation of illicit drugs. She also history of hep C and was advised to follow-up with GI as an outpatient and told to avoid alcohol consumption. On 02/24/2018, patient decided to leave AGAINST MEDICAL ADVICE. Attempts were made by multiple members of the medical team, to encourage the patient to stay and complete treatment and risk were discussed in regards to leaving before treatment was completed to include worsening infection, sepsis, permanent damage to right hand. Patient stated understanding and insisted on leaving AGAINST MEDICAL ADVICE. - Time Spent with Patient Total time spent providing and/or coordinating discharge services: Greater than 30 minutes - Quality: VTE Deep Vein Thrombosis/Pulmonary Embolism Present on Admission: No Exam Vital signs: Vital Signs 02/23/18 15:53 02/23/18 17:11 02/23/18 20:00 Temperature 98.2 F 97.9 F Pulse Rate 74 66 Respiratory Rate 18 16 15 Blood Pressure 103/57 L 117/56 L Pulse Oximetry 98 98 02/23/18 23:49 02/24/18 03:52 02/24/18 07:15 Temperature 98.1 F 97.9 F 97.9 F Pulse Rate 66 62 61 Respiratory Rate 16 16 16 Blood Pressure 104/52 L 110/56 L 109/54 L Pulse Oximetry 96 96 98 02/24/18 12:56 Temperature 98.0 F Pulse Rate 68 Respiratory Rate 20 Blood Pressure 109/58 L Pulse Oximetry 98 Intake & Output 02/23/18 02/24/18 02/24/18 18:59 06:59 18:59 Intake Total 950 / 950 500 / 500 250 / 250 Balance 950 / 950 500 / 500 250 / 250 Weight 58.1 kg Intake: IV 350 / 350 500 / 500 250 / 250 Vancomycin Inj 1,000 MG In NS 500 / 500 250 / 250 Inj 250 ML @ 250 mls/hr IV.SIG Q8H RANDI Rx#:[id number] Vancomycin Inj 850 MG In NS Inj 250 / 250 250 ML @ 250 mls/hr IV.SIG Q12H RANDI Rx#:[id number] Vancomycin Inj 500 MG In NS Inj 100 / 100 100 ML @ 200 mls/hr IV.SIG ONCE ONE Rx#:[id number] Oral 600 / 600 Other: # Voids 4 Narrative: GENERAL: Well-developed well-nourished young female in no acute distress. Awake and alert. Appears comfortable. SKIN: Warm and dry. Right hand with less erythema and diffuse edema. +edema seems to have coalesced over the 2nd metatarsal area. Improved ROM. HEENT: Atraumatic. Normocephalic. Pupils equal and round. No scleral icterus. No injection or drainage. No nasal bleeding or discharge. Mucous membranes pink and moist. NECK: Trachea midline. CARDIOVASCULAR: Regular rate and rhythm. RESPIRATORY: No accessory muscle use. Clear to auscultation. Breath sounds equal bilaterally. GASTROINTESTINAL: Abdomen soft, non-tender, nondistended. +BS. MUSCULOSKELETAL: Extremities without clubbing, cyanosis, or edema. No obvious deformities. NEUROLOGICAL: Awake and alert. No obvious cranial nerve deficits. Motor grossly within normal limits except for the right hand. Able to move all extremities spontaneously. Normal speech. PSYCHIATRIC: Judgment and insight poor. Results Procedures completed during hospitalization: None Labs on day of discharge: Labs from last 24 hours 02/24/18 02/24/18 08:15 08:15 BUN 11 Creatinine 0.60 Estimated GFR Greater than 89 Vancomycin Trough 13.0 H Preliminary micro results at discharge 02/21/18 15:17 Aerobic Blood Culture - Preliminary Blood - Peripheral No growth in 3 days Anaerobic Blood Culture - Preliminary No growth in 3 days 02/21/18 15:17 Aerobic Blood Culture - Preliminary Blood - Peripheral No growth in 3 days Anaerobic Blood Culture - Preliminary No growth in 3 days - Impressions ITS Impressions Soft Tissue Ultrasound 02/24/18 00:00 CONCLUSION: 1. Complex fluid collection in the posterior right hand as above. Discharge Plan - Discharge Disposition Patient Disposition: 07 Against Medical Advice - Discharge Condition Condition: Stable - Discharge Order Discharge Orders: AMA Discharge (Routine); Ordered 02/24/18 Ordered By: Rosa Riley - Discharge Details Anticipated Discharge Date: 02/24/18 Discharge Comment: Discharge pending ID clearance - Physicians Team Primary Care Provider: Primary Care Yael Arreguin Attending Provider: Laura Agarwal Other Providers: Arcenio Bowens MD ; Diana Sparrow MD
== END 2018-02-24 15:15 | disposition left against medical advice (07) ==
LOC: NEPB 12:19 → NEDA 12:19 → NEPHCDU 18:03
PROVIDERS: ADMIT Family Medicine; ATTEND Family Medicine